=== PATIENT | male | born 1940 | race Hispanic/Latino ===

== ENCOUNTER 2016-08-20 10:39 | Outpatient (CLI) | payer MEDICARE ==
[2016-08-20 13:23] LABS: Prothrombin Time 24.1 SEC (12.0-14.7)
== END 2016-08-20 10:40 | disposition home or self-care (01) ==
LOC: NAV LAB 10:39
PROVIDERS: ATTEND Nurse Practitioner
DX: I48.91 Unspecified atrial fibrillation (principal)
CPT/HCPCS: 36415; 85610

== ENCOUNTER 2016-09-10 10:54 | Outpatient (CLI) | payer MEDICARE, OTHER ==
[2016-09-10 12:05] LABS: Prothrombin Time 30.1 SEC (12.0-14.7)
== END 2016-09-10 10:55 | disposition home or self-care (01) ==
LOC: NAV LAB 10:54
PROVIDERS: ATTEND Nurse Practitioner
DX: I48.91 Unspecified atrial fibrillation (principal)
CPT/HCPCS: 36415; 85610

== ENCOUNTER 2016-10-08 13:46 | Outpatient (CLI) | payer MEDICARE ==
[2016-10-08 14:13] LABS: Prothrombin Time 22.6 SEC (12.0-14.7)
== END 2016-10-08 13:47 | disposition home or self-care (01) ==
LOC: NAV LAB 13:46
PROVIDERS: ATTEND Nurse Practitioner
DX: I48.91 Unspecified atrial fibrillation (principal)
CPT/HCPCS: 36415; 85610

== ENCOUNTER 2016-11-07 11:35 | Outpatient (CLI) | payer MEDICARE ==
[2016-11-07 12:16] LABS: INR-International Normal Ratio 2.2; Prothrombin Time 24.8 SEC (12.0-14.7)
== END 2016-11-07 11:36 | disposition home or self-care (01) ==
LOC: NAV LAB 11:35
PROVIDERS: ATTEND Nurse Practitioner
DX: I48.91 Unspecified atrial fibrillation (principal)
CPT/HCPCS: 36415; 85610

== ENCOUNTER 2016-12-10 09:34 | Outpatient (CLI) | payer MEDICARE ==
[2016-12-10 10:11] LABS: INR-International Normal Ratio 2.5
== END 2016-12-10 09:35 | disposition home or self-care (01) ==
LOC: NAV LAB 09:34
PROVIDERS: ATTEND Nurse Practitioner
DX: I48.91 Unspecified atrial fibrillation (principal)
CPT/HCPCS: 36415; 85610

== ENCOUNTER 2017-01-03 10:26 | Outpatient (CLI) | payer MEDICARE ==
[2017-01-03 10:52] LABS: INR-International Normal Ratio 2.7
== END 2017-01-03 10:27 | disposition home or self-care (01) ==
LOC: NAV LAB 10:26
PROVIDERS: ATTEND Nurse Practitioner
DX: Z51.81 Encounter for therapeutic drug level monitoring (principal); I48.91 Unspecified atrial fibrillation; Z79.01 Long term (current) use of anticoagulants
CPT/HCPCS: 36415; 85610

== ENCOUNTER 2017-02-03 09:39 | Outpatient (CLI) | payer MEDICARE ==
[2017-02-03 10:17] LABS: INR-International Normal Ratio 2.7; Prothrombin Time 30.1 SEC (12.0-14.7)
== END 2017-02-03 09:40 | disposition home or self-care (01) ==
LOC: NAV LAB 09:39
PROVIDERS: ATTEND Nurse Practitioner
DX: I48.91 Unspecified atrial fibrillation (principal)
CPT/HCPCS: 36415; 85610

== ENCOUNTER 2017-03-03 13:20 | Outpatient (CLI) | payer MEDICARE ==
[2017-03-03 13:56] LABS: INR-International Normal Ratio 2.7; Prothrombin Time 29.6 SEC (12.0-14.7)
== END 2017-03-03 13:21 | disposition home or self-care (01) ==
LOC: NAV LAB 13:20
PROVIDERS: ATTEND Nurse Practitioner
DX: I48.91 Unspecified atrial fibrillation (principal)
CPT/HCPCS: 36415; 85610

== ENCOUNTER 2017-04-02 09:34 | Outpatient (CLI) | payer MEDICARE ==
[2017-04-02 10:14] LABS: INR-International Normal Ratio 2.6; Prothrombin Time 28.8 SEC (12.0-14.7)
[2017-04-02 10:26] LABS: Follow-up Coag Comp? YES; Follow-up Result - Coag REPORT FAXED
== END 2017-04-02 09:35 | disposition home or self-care (01) ==
LOC: NAV LAB 09:34
PROVIDERS: ATTEND Nurse Practitioner
DX: I48.91 Unspecified atrial fibrillation (principal)
CPT/HCPCS: 36415; 85610